=== PATIENT | female | born 1995 | race Caucasian/White ===

== ENCOUNTER 2017-02-14 11:03 | Emergency (ER) | payer OTHER ==
[2017-02-14 11:15] VITALS: BP 120/60
--- NOTE | 2017-02-14 12:31 | UC ---
Wu Mandel Angela, scribed for Kristine Phan MD on 02/14/17 at 1150 . Seizure HPI - HPI Summary HPI Summary: This pt is a 21 y/o female accompanied by her grandmother presenting to [facility] c/ o seizure at 0800 today. Before the seizure, she remembers standing next to the bed. After her seizure, she recalls sitting in a chair, EMS asking questions. Pt states she currently has a mild cough. Pt also c/o vomiting and headache (localized mostly in the back of her head and radiating up). She states she vomited mostly water. She notes with past seizures her headaches have not been this bad. She denies numbness, tingling in UE or LE. Pt notes she has been sleep deprived recently. She states she has insomnia and has always had this issue. Last time she had a seizure was in the summer time 2016, per grandmother. Her first seizure was 2 years ago. Pt has zonisamide medication for her seizures but has not been taking out. NKDA. LMP: 2-3 days ago and pt reports it was normal. Pt's PCP is Dr. Marcelino. Her neurologist is Dr. Campos. Pt has an upcoming appointment on March 08 for a check up. Her last EEG was last year. - History Of Current Complaint Chief Complaint: UCHeadache Stated Complaint: SEIZURE, HEADACHE Time Seen by Provider: 02/14/17 11:43 Hx Obtained From: Patient Hx Last Menstrual Period: just finished ?: No Onset/Duration: Lasting Minutes Alleviating Factor(s): Spontaneous Resolution Associated Signs And Symptoms: Other - headache, vomiting Related History: Medication Non-Compliant - zonisamide - Allergies/Home Medications Allergies/Adverse Reactions: Allergies Allergy/AdvReac Type Severity Reaction Status Date / Time No Known Allergies Allergy Verified 02/14/17 11:15 Home Medications: Home Medications Zonisamide 400 mg PO BEDTIME 02/14/17 [History Confirmed 02/14/17] PMH/Surg Hx/FS Hx/Imm Hx - Additional Past Medical History Additional PMH: PMHx: spondyloepithileal dysplasia Previously Healthy: No - see hpi. also hx hip dysplasia s/p childhood surgeries. Hx chondromalaci Other Endocrine History: DENIES: diabetes Neurological History: Seizures - Surgical History Surgical History: Yes Surgery Procedure, Year, and Place: MULTIPLE LEG SURGERIES - Family History Known Family History: Positive: Diabetes - Social History Occupation: Employed Full-time - [employer] Alcohol Use: None Substance Use Type: Marijuana Smoking Status (MU): Current Every Day Smoker Type: Cigarettes Amount Used/How Often: 2 CIG/WEEK Review of Systems Constitutional: Negative, Fatigue Skin: Negative Eyes: Negative ENT: Negative Respiratory: Cough Cardiovascular: Negative Gastrointestinal: Vomiting Genitourinary: Negative Motor: Negative Neurovascular: Negative Musculoskeletal: Negative Neurological: Headache, Other - NEGATIVE: numbness, paresthesia All Other Systems Reviewed And Are Negative: Yes Physical Exam Triage Information Reviewed: Yes Appearance: Well-Nourished - able to sit up in stretcher for examination Vital Signs: Initial Vital Signs Temp 98.2 F 02/14/17 11:09 Pulse 93 02/14/17 11:09 Resp 18 02/14/17 11:09 BP 120/60 02/14/17 11:09 Pulse Ox 100 02/14/17 11:09 Vital Signs Reviewed: Yes Eye Exam: Normal - perrla eomi. sw, cp. 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 No c/o smel d/o. No diplopia. DTR's 2+ equal P / BR / R Moves all ext's. Distal sens LT present x 4 ext's. Denies B/B issues. Psychological Exam: Normal - conversing easily and appropriately Skin Exam: Normal - no visible or reported rash Seizure Course/Dx - Course Course Of Treatment: Recent sz this am. Witnesses to sz not present, grandmother thinks lasted a couple minutes. c/o Headache posterior radiating frontal, not described as whol, but worse than she usually has after a sz - prompted visit here to [facility]. + n/v x 1 upon arrival (mostly water like). Feels less nauseus now, declines antiemetic. No vis / aud changes. No recent illness. + tobacco, no recent alchohol. No cp / palpitations. No GI issues. No new p/d/w. No issues, last mense approx 2-3 days ago, normal per pt. Call placed to ED 12:15, unable to speak with provider. 12:20pm d/w Dr. Kuhn. Pt and grandmother were given the opportunity to ask several questions, to which I answered to the best of my ability. - Differential Dx/Diagnosis Provider Diagnoses: Seizure. headache Discharge - Discharge Plan Condition: Fair Disposition: ADMITTED TO [facility] Referrals: Shamar Marcelino MD [Primary Care Provider] - Gee Campos MD [Medical Doctor] - Additional Instructions: Go directly to the Emergency Department. Please call [phone] for problems in the meantime. The documentation as recorded by the Wu lucas Angela accurately reflects the service I personally performed and the decisions made by me, Kristine Phan MD.
== END 2017-02-14 12:08 | disposition short-term general hospital (02) ==
LOC: UCEAST 11:03
DX: R56.9 Unspecified convulsions (principal); F17.210 Nicotine dependence, cigarettes, uncomplicated; R51 Headache
CPT/HCPCS: 99212; G0463

== ENCOUNTER → 2017-02-14 12:37 | Emergency (ER) | payer OTHER ==
--- NOTE | 2017-02-14 13:41 | RAD ---
INDICATION: Seizure. COMPARISON: There are no prior studies available for comparison. TECHNIQUE: Contiguous axial sections of the brain were obtained from the skull base to the vertex without contrast. FINDINGS: The ventricles, cisterns and sulci are within normal limits. No significant focal abnormality or mass effect is seen. There is no evidence for hemorrhage. No significant focal osseous abnormality is seen. The visualized portion of the paranasal sinuses and mastoid air cells appear clear. IMPRESSION: NO EVIDENCE FOR ACUTE INTRACRANIAL ABNORMALITY.
[2017-02-14 14:21] LABS: Hematocrit 41 % (35-47); Hemoglobin 13.8 g/dl (12.0-16.0); Mean Corpuscular HGB Conc 34 g/dl (31-36); Mean Corpuscular Hemoglobin 30 pg (27-31); Mean Corpuscular Volume 89 fL (80-97); Mean Platelet Volume 10 um3 (7.4-10.4); Red Blood Count 4.61 10^6/ul (4.0-5.4); Red Cell Distribution Width 14 % (10.5-15); White Blood Count 8.2 10^3/ul (3.5-10.8)
[2017-02-14 14:35] LABS: Albumin 3.7 g/dL (3.2-5.2); BUN/Creatinine Ratio 20.4 (8-20); Calcium 8.5 mg/dL (8.6-10.3); EGFR African American 207.1 (>60); Globulin 2.4 g/dL (2-4); Magnesium 1.9 mg/dL (1.9-2.7); Potassium 3.4 mmol/L (3.5-5.0); Total Bilirubin 0.3 mg/dL (0.2-1.0); Total Protein 6.1 g/dL (6.4-8.9)
[2017-02-14 15:02] LABS: TSH (Thyroid Stimulating Horm) 0.68 mcIU/mL (0.34-5.60)
--- NOTE | 2017-02-14 15:20 | ED ---
Seizure - HPI Summary HPI Summary: Patient presents to the ED s/p seizure. Hx of seizures and is followed by Dr. Campos. Last seizure 1.5 years ago. She currently takes Zolpiden. She has not been taking her medications stating she has been taking them off and on for except for 2 weeks ago, she stopped. She has a prescription, but she can't remember to take it. She also notes to insomnia and she stays up all night and sleeps during the day. Denies other health problems. She states the seizure was witnessed and her friends state she fell to the floor and was shaking. Occurred for approximately 1 minute and ambulance was called. She is unsure the types of seizures she has. Denies B/B dysfunction. She remembers prior to the accident that she was standing and immediately became tired. She is currently tired and notes to some confusion, but denies any other symptoms. - History Of Current Complaint Chief Complaint: EDSeizure Time Seen by Provider: 02/14/17 12:59 Hx Obtained From: Patient Onset/Duration: Sudden Onset Severity Of Seizure: Self-Limited Location Of Seizure: All Extremities Character: Other - unknown Aggravating Factor(s): Sleep Deprivation, Meds Non-compliant Alleviating Factor(s): Spontaneous Resolution Associated Signs And Symptoms: Negative Related History: Medication Non-Compliant - Risk Factors SAH Risk Factors: Negative Meningitis Risk Factors: Negative SDH Risk Factor: Seizures - Allergies/Home Medications Allergies/Adverse Reactions: Allergies Allergy/AdvReac Type Severity Reaction Status Date / Time No Known Allergies Allergy Verified 02/14/17 11:15 Home Medications: Home Medications Zonisamide(NF) [Zonegran(NF)] 400 mg PO BEDTIME 02/14/17 [History Confirmed ] PMH/Surg Hx/FS Hx/Imm Hx Previously Healthy: Yes Endocrine/Hematology History: Denies: Hx Diabetes, Hx Thyroid Disease Cardiovascular History: Denies: Hx Hypertension Respiratory History: Denies: Hx Asthma, Hx Chronic Obstructive Pulmonary Disease (COPD) GI History: Denies: Hx Ulcer - Surgical History Surgery Procedure, Year, and Place: MULTIPLE LEG SURGERIES - Immunization History Hx Pertussis Vaccination: No Immunizations Up to Date: Unable to Obtain/Confirm Infectious Disease History: No Infectious Disease History: Denies: Hx Clostridium Difficile, Hx Hepatitis, Hx Human Immunodeficiency Virus (HIV), Hx of Known/Suspected MRSA, Hx Shingles, Hx Known/Suspected VRSA, History Other Infectious Disease, Traveled Outside the [place] in Last 30 Days - Family History Known Family History: Positive: Diabetes - Social History Occupation: Unemployed Lives: Dormitory/Roommates Alcohol Use: None Hx Substance Use: Yes Substance Use Type: Reports: Marijuana Hx Tobacco Use: Yes Smoking Status (MU): Current Every Day Smoker Type: Cigarettes Amount Used/How Often: 2 CIG/WEEK Review of Systems Positive: Fatigue. Negative: Fever, Chills Eyes: Negative Cardiovascular: Negative Respiratory: Negative Genitourinary: Negative Positive: no symptoms reported, see HPI Musculoskeletal: Negative Neurological: Negative Psychological: Normal All Other Systems Reviewed And Are Negative: Yes Physical Exam Triage Information Reviewed: Yes Vital Signs On Initial Exam: Initial Vitals Temp Pulse Resp BP Pulse Ox 98.5 F 76 20 116/55 96 02/14/17 12:49 02/14/17 12:49 02/14/17 12:49 02/14/17 12:49 02/14/17 12:49 Vital Signs Reviewed: Yes Appearance: Positive: Well-Appearing, Well-Nourished Skin: Positive: Warm, Skin Color Reflects Adequate Perfusion Head/Face: Positive: Normal Head/Face Inspection Eyes: Positive: EOMI, SHABANA, Conjunctiva Clear Neck: Positive: Supple, No Lymphadenopathy Respiratory/Lung Sounds: Positive: Clear to Auscultation, Breath Sounds Present Cardiovascular: Positive: RRR, Pulses are Symmetrical in both Upper and Lower Extremities Musculoskeletal: Positive: Normal, Strength/ROM Intact Neurological: Positive: Sensory/Motor Intact, Alert, Oriented to Person Place, Time, Speech Normal Psychiatric: Positive: Normal Diagnostics - Vital Signs Vital Signs Temp Pulse Resp BP Pulse Ox 02/14/17 12:49 98.5 F 76 20 116/55 96 - Laboratory Lab Results: Lab Results 02/14/17 02/14/17 02/14/17 Range/Units 14:00 14:00 14:00 WBC 8.2 (3.5-10.8) 10^3/ul RBC 4.61 (4.0-5.4) 10^6/ul Hgb 13.8 (12.0-16.0) g/dl Hct 41 (35-47) % MCV 89 (80-97) fL MCH 30 (27-31) pg MCHC 34 (31-36) g/dl RDW 14 (10.5-15) % Plt Count 211 (150-450) 10^3/ul MPV 10 (7.4-10.4) um3 Neut % (Auto) 78.3 (38-83) % Lymph % (Auto) 17.5 L (25-47) % Swain % (Auto) 3.5 (1-9) % Eos % (Auto) 0.3 (0-6) % Baso % (Auto) 0.4 (0-2) % Absolute Neuts (auto) 6.5 (1.5-7.7) 10^3/ul Absolute Lymphs (auto) 1.4 (1.0-4.8) 10^3/ul Absolute Monos (auto) 0.3 (0-0.8) 10^3/ul Absolute Eos (auto) 0 (0-0.6) 10^3/ul Absolute Basos (auto) 0 (0-0.2) 10^3/ul Absolute Nucleated RBC 0 10^3/ul Nucleated RBC % 0 INR (Anticoag Therapy) 0.92 (0.89-1.11) Sodium 137 (133-145) mmol/L Potassium 3.4 L (3.5-5.0) mmol/L Chloride 109 (101-111) mmol/L Carbon Dioxide 22 (22-32) mmol/L Anion Gap 6 (2-11) mmol/L BUN 10 (6-24) mg/dL Creatinine 0.49 L (0.51-0.95) mg/dL Est GFR ( Amer) 207.1 (>60) Est GFR (Non-Af Amer) 161.0 (>60) BUN/Creatinine Ratio 20.4 H (8-20) Glucose 87 (70-100) mg/dL Lactic Acid (0.5-2.0) mmol/L Calcium 8.5 L (8.6-10.3) mg/dL Magnesium 1.9 (1.9-2.7) mg/dL Total Bilirubin 0.30 (0.2-1.0) mg/dL AST 16 (13-39) U/L ALT 12 (7-52) U/L Alkaline Phosphatase 61 (34-104) U/L Total Creatine Kinase 127 (10-223) U/L Total Protein 6.1 L (6.4-8.9) g/dL Albumin 3.7 (3.2-5.2) g/dL Globulin 2.4 (2-4) g/dL Albumin/Globulin Ratio 1.5 (1-3) TSH 0.68 (0.34-5.60) mcIU/mL 02/14/17 Range/Units 14:00 WBC (3.5-10.8) 10^3/ul RBC (4.0-5.4) 10^6/ul Hgb (12.0-16.0) g/dl Hct (35-47) % MCV (80-97) fL MCH (27-31) pg MCHC (31-36) g/dl RDW (10.5-15) % Plt Count (150-450) 10^3/ul MPV (7.4-10.4) um3 Neut % (Auto) (38-83) % Lymph % (Auto) (25-47) % Swain % (Auto) (1-9) % Eos % (Auto) (0-6) % Baso % (Auto) (0-2) % Absolute Neuts (auto) (1.5-7.7) 10^3/ul Absolute Lymphs (auto) (1.0-4.8) 10^3/ul Absolute Monos (auto) (0-0.8) 10^3/ul Absolute Eos (auto) (0-0.6) 10^3/ul Absolute Basos (auto) (0-0.2) 10^3/ul Absolute Nucleated RBC 10^3/ul Nucleated RBC % INR (Anticoag Therapy) (0.89-1.11) Sodium (133-145) mmol/L Potassium (3.5-5.0) mmol/L Chloride (101-111) mmol/L Carbon Dioxide (22-32) mmol/L Anion Gap (2-11) mmol/L BUN (6-24) mg/dL Creatinine (0.51-0.95) mg/dL Est GFR ( Amer) (>60) Est GFR (Non-Af Amer) (>60) BUN/Creatinine Ratio (8-20) Glucose (70-100) mg/dL Lactic Acid 0.5 (0.5-2.0) mmol/L Calcium (8.6-10.3) mg/dL Magnesium (1.9-2.7) mg/dL Total Bilirubin (0.2-1.0) mg/dL AST (13-39) U/L ALT (7-52) U/L Alkaline Phosphatase (34-104) U/L Total Creatine Kinase (10-223) U/L Total Protein (6.4-8.9) g/dL Albumin (3.2-5.2) g/dL Globulin (2-4) g/dL Albumin/Globulin Ratio (1-3) TSH (0.34-5.60) mcIU/mL Result Diagrams: 02/14/17 14:00 02/14/17 14:00 Lab Statement: Any lab studies that have been ordered have been reviewed, and results considered in the medical decision making process. Course/Dx - Course Course Of Treatment: Patient is evaluated for possible seizure. The seizure activity was witnessed, and friend thinks she hit her head. Brain CT negative for acute findings. Lab work WNL. She is encouraged to continue to take her medications. She has a follow up with Dr. Campos on Mar 08 (in 3 weeks). She is encouraged to return if symptoms worsen. She and family agree. - Diagnoses Differential Diagnosis/HQI/PQRI: Positive: Metabolic Disorder Provider Diagnoses: Seizure Discharge - Discharge Plan Condition: Stable Disposition: HOME Patient Education Materials: Recurrent Seizures in Adults (ED) Referrals: Shamar Marcelino MD [Primary Care Provider] - Gee Campos MD [Medical Doctor] - Additional Instructions: Please follow up with Dr. Campos correctional supervisor lieutenant your prescription TODAY and continue to take the medication as prescribed Try your best to sleep Drink plenty of fluids Return if you have worsening symptoms As discussed, all your lab work was normal including imaging and EKG
[2017-02-14 15:25] VITALS: BP 93/53
== END | disposition home or self-care (01) ==
LOC: ED 12:37
DX: R56.9 Unspecified convulsions (principal); R53.83 Other fatigue; F17.210 Nicotine dependence, cigarettes, uncomplicated
CPT/HCPCS: 36415; 70450; 80053; 82550; 83605; 83735; 84443; 85025; 85610; 93005; 99282